=== PATIENT | male | born 1965 | race Caucasian/White ===

== ENCOUNTER 2020-11-19 07:11 | Emergency (ER) | payer BC ==
[~2020-11-19] VITALS: Ht 182.9 cm; Wt 86.2 kg
[2020-11-19 07:45] LABS: Basophils # (auto) 0.1 10 ^3/uL (0-0.2); Basophils % (auto) 1.2 % (0.0-2.0); Eosinophils # (auto) 0.4 10 ^3/uL (0-0.8); Eosinophils % (auto) 5.4 % (0.0-7.0); Hematocrit 38.7 % (41.0-53.0); Hemoglobin 13.5 g/dL (13.5-17.5); Lymphocytes # (auto) 2.4 10 ^3/uL (0.4-5.4); Lymphocytes % (auto) 32.7 % (10.0-50.0); Mean Corpuscular Hemoglobin 33.2 pg (28.0-32.0); Mean Corpuscular Hgb Conc. 34.9 g/dL (32.0-36.0); Mean Corpuscular Volume 95.1 fL (80.0-100.0); Monocytes # (auto) 0.6 10 ^3/uL (0-1.3); Monocytes % (auto) 8.7 % (0.0-12.0); Neutrophils # (auto) 3.8 10 ^3/uL (1.6-8.6); Red Blood Cells 4.07 10^6/uL (4.5-5.90); Red Cell Distribution Width 12.6 % (11.8-14.3); White Blood Cell 7.3 10^3/uL (4.4-10.8)
[2020-11-19 08:05] LABS: Urine Bacteria NONE SEEN /hpf (None Seen); Urine Blood Negative /uL (Negative); Urine Specific Gravity 1.006 (1.001-1.035); Urine WBC 1 /hpf (0 - 3)
[2020-11-19 08:08] LABS: Albumin 3.4 g/dL (3.4-5.0); Anion Gap 3 (5-15); Blood Urea Nitrogen 10 mg/dL (7-18); Calcium 9.3 mg/dL (8.5-10.1); Carbon Dioxide 26 mmol/L (21-32); Chloride 109 mmol/L (98-107); Glucose 87 mg/dL (74-106); Lipase 123 U/L (73-393); Magnesium 2.5 mg/dL (1.6-2.6); Potassium 4.1 mmol/L (3.5-5.1); Sodium 138 mmol/L (136-145)
[2020-11-19 08:14] LABS: Alanine Aminotransferase 267 U/L (16-61); Alkaline Phosphatase 176 U/L (45-117); Aspartate Aminotransferase 37 U/L (15-37); BUN/Creatinine Ratio 12.3; Bilirubin, Total 0.6 mg/dL (0.2-1.0); GFR African American 128 mL/min; GFR Non-African American 106 mL/min; Total Protein 7.1 g/dL (6.4-8.2)
[2020-11-19 10:55] VITALS: BP 111/86
== END 2020-11-19 10:58 | disposition home or self-care (01) ==
LOC: ER 07:11
DX: R10.13 Epigastric pain (principal); R74.8 Abnormal levels of other serum enzymes; F10.10 Alcohol abuse, uncomplicated; I10 Essential (primary) hypertension; Z87.19 Personal history of other diseases of the digestive system; Z90.49 Acquired absence of other specified parts of digestive tract; F17.210 Nicotine dependence, cigarettes, uncomplicated; Y90.9 Presence of alcohol in blood, level not specified
CPT/HCPCS: 36415; 74176; 80053; 81001; 83690; 83735; 84484; 85025; 93005

== ENCOUNTER 2020-12-10 11:41 | Emergency (ER) | payer BC ==
[~2020-12-10] VITALS: Ht 182.9 cm; Wt 86.2 kg
[2020-12-10 16:32] VITALS: BP 132/78
== END 2020-12-10 17:05 | disposition home or self-care (01) ==
LOC: ER 11:41
DX: F90.9 Attention-deficit hyperactivity disorder, unspecified type (principal); F17.210 Nicotine dependence, cigarettes, uncomplicated; Z76.0 Encounter for issue of repeat prescription; Z90.49 Acquired absence of other specified parts of digestive tract